=== PATIENT | male | born 1995 | race Asian ===

== ENCOUNTER 2024-01-18 17:36 | Emergency (ER) | payer OTHER ==
[~2024-01-18] VITALS: Ht 160 cm; Wt 95.5 kg
[2024-01-18 18:05] LABS: COVID AG,FIA SOURCE NASAL SWAB
[2024-01-18] MEDS: DEXAMETHASONE SOD PHOS 4 MG/ML 5 ML VIAL IM ONE (18:07)
[2024-01-18] MEDS: HYDROCODONE/ACETAMINOPHEN 5-325 MG TABLET PO ONE (18:07)
[2024-01-18] MEDS: PENICILLIN G BENZATHINE LA 1,200,000 UNITS/2 ML SYRINGE IM ONE (18:10)
[2024-01-18 18:31] LABS: SARS-COV2 (COVID) ANTIGEN,FIA Negative (Negative)
[2024-01-18 18:33] LABS: RAPID GROUP A STREP NEGATIVE (NEGATIVE)
[2024-01-18 18:39] LABS: INFLUENZA TYPE A NEGATIVE FOR TYPE A (NEGATIVE); INFLUENZA TYPE B POSITIVE FOR TYPE B (NEGATIVE)
[2024-01-18 20:35] VITALS: BP 153/88; PULSE 89; RESP 20; TEMP 98.8
[2024-01-18] MEDS ORDERED: OSEL75 PO (20:39)
== END 2024-01-18 20:53 | disposition home or self-care (01) ==
LOC: EMS 17:42
DX: J11.1 Influenza due to unidentified influenza virus with other respiratory manifestations (principal); Z20.822 Contact with and (suspected) exposure to COVID-19
CPT/HCPCS: 99284; 87426; 87430; 87804; 96372; J0561; J1100